=== PATIENT | male | born 1975 ===

== ENCOUNTER 2023-06-23 20:49 | Outpatient (REF) | payer MEDICAID, SELFPAY ==
[2023-06-23 21:28] LABS: Bilirubin Negative (Negative); Blood Negative (Negative); Clarity Clear (Clear); Glucose Negative (Negative); Ketones Negative (Negative); Leukocyte Esterase Negative (Negative); Nitrite Negative (Negative); Specific Gravity >= 1.030 (1.005-1.025); Urobilinogen 0.2 mg/dL (Up to 0.2); pH 5.5 (5-8)
== END 2023-06-23 20:50 | disposition home or self-care (01) ==
LOC: LBN 20:49
PROVIDERS: Visit Provider Naturopath
DX: R30.0 Dysuria (principal); R31.9 Hematuria, unspecified
CPT/HCPCS: 81003